=== PATIENT | female | born 1995 | race Caucasian/White ===

== ENCOUNTER 2022-07-25 23:44 | Emergency (ER) | payer OTHER ==
[2022-07-26] MEDS ORDERED: ALPRAZolam 0.5 MG TAB ONE (00:08)
== END 2022-07-26 00:35 | disposition home or self-care (01) ==
LOC: BURERS 23:44
DX: F43.0 Acute stress reaction (principal); E03.9 Hypothyroidism, unspecified; Z79.899 Other long term (current) drug therapy
CPT/HCPCS: 93005

== ENCOUNTER 2022-09-01 14:15 | Emergency (ER) | payer OTHER | END 2022-09-01 15:05 | disposition home or self-care (01) | LOC: BURERS 14:15 | DX: S93.601A Unspecified sprain of right foot, initial encounter (principal); L73.9 Follicular disorder, unspecified; E03.9 Hypothyroidism, unspecified; X50.1XXA Overexertion from prolonged static or awkward postures, initial encounter ==